=== PATIENT | female | born 1975 | race Two or more races ===

== ENCOUNTER 2022-04-02 19:32 | Emergency (ER) | payer SELFPAY ==
[2022-04-02] MEDS: Sodium Chloride 0.9% 10 ML Syringe FLUSH PRN ×2 (21:42→21:58)
[2022-04-02] MEDS: Prochlorperazine 10 MG/2 ML SDV IVPUSH ONE ×2 (21:42→21:58)
== END 2022-04-03 00:53 | disposition home or self-care (01) ==
LOC: JD.ED 19:32
DX: R51.9 Headache, unspecified (principal)
CPT/HCPCS: 36415; 70450; 80053; 85025; 96374; 99284; J0780; J3490